=== PATIENT | male | born 1985 | race Caucasian/White ===

== ENCOUNTER 2019-01-10 14:12 | Emergency (ER) | payer SELFPAY | END 2019-01-10 17:26 | disposition home or self-care (01) | LOC: FTE 14:12 | DX: S91.115A Laceration without foreign body of left lesser toe(s) without damage to nail, initial encounter (principal); W26.8XXA Contact with other sharp object(s), not elsewhere classified, initial encounter; Y92.89 Other specified places as the place of occurrence of the external cause | CPT/HCPCS: 12001; 99282-25 ==